=== PATIENT | male | born 1990 | race Caucasian/White ===

== ENCOUNTER 2024-12-09 11:03 | Outpatient (AMB) | payer OTHER, SELFPAY ==
--- OUTSIDE RECORDS SUMMARY | 2024-12-09 11:06 | XMS_ITS ---
Author Name [facility] Organization Unknown Problems Problem Status Onset Date Problem Type Date of Resoluti on Source Laceration of right index finger without foreign body without damage to nail, initial encounter active EncounterDiagnosisAct [id number] H Encounters Encounter Type Encounter Reason Primary Diagnosis Location Date Emergency Suture / Staple Removal Suture / Staple Removal [facility] 12/01/2024 Emergency Laceration without foreign body of right index finger without damage to nail, initial encounter Laceration without foreign body of right index finger without damage to nail, initial encounter [facility] 11/22/2024 Emergency Anxiety disorder, unspecified Anxiety disorder, unspecified [facility] 11/22/2024 Care Team Organization Name Specialty Phone Email Start Date End Da te [facility] 11/23/2024 [facility] 11/23/2024 [facility] NO PCP Primary Care 11/22/2024 [facility] 11/22/2024
--- OUTSIDE RECORDS SUMMARY | 2024-12-09 11:06 | XMS_ITS | Clinical Summary ---
Author Organization [address] [address] Care Team Providers Care Condominium Manager Name Role Phone System, Provider Not In Primary Care Provider Un available Allergies No known active allergies Encounters Date Type Department Care Team Description 12/01/2024 1:03 PM EDT - 12/01/2024 1:20 PM EDT Emergency [facility] Emergency Department [address] [address] Discharge Disposition: Home or Self Care 11/22/2024 10:02 PM EDT - 11/23/2024 12:50 AM EDT Emergency [facility] Emergency Department [address] [address] Meeta Lara PA Laceration of right index finger without foreign body without damage to nail, initial encounter (Primary Dx) Discharge Disposition: Home or Self Care 11/22/2024 Travel from Last 3 Months Social History Tobacco Use Types Packs/Day Years Used Date Smoking Tobacco: Never Assessed Sex and Gender Information Value Date Recorded Sex Assigned at Not on file Legal Sex Male 9:50 PM EDT Gender Identity Not on file Sexual Orientation Not on file Travel History Travel Start Travel End [place] 11/21/2024 11/21/2024 Last Filed Vital Signs Vital Sign Reading Time Taken Comments Blood Pressure 138/84 11/22/2024 10:04 PM EDT Pulse 80 11/22/2024 10:04 PM EDT Temperature 37.3 C (99.2 F) 11/22/2024 10:04 PM EDT Respiratory Rate 18 11/22/2024 10:04 PM EDT Oxygen Saturation 99% 11/22/2024 10:04 PM EDT Inhaled Oxygen Concentration - - Weight 76.2 kg (168 lb) 11/22/2024 10:04 PM EDT Height 175.3 cm (5' 9 ) 11/22/2024 10:04 PM EDT Body Mass Index 24.81 11/22/2024 10:04 PM EDT Plan of Treatment Health Maintenance Due Date Last Done Comments Hepatitis C Screening 1989 Lipid Panel 1989 Annual Physical Exam 2007 Pneumococcal Vaccine: Peds ( 0 to 5 Yrs) and At-Risk Pts (6 to 49 Yrs) (1 of 2 - PCV) 2008 Tdap and Td Vaccines Adult 2008 COVID-19 Vaccine (2023-2 5 season) 2024 Influenza Vaccine (#1) 2025 HIB Vaccines Aged Out No longer eligi ble based on patient's age to complete this topic HPV Vaccines (No Doses Required) Completed Hepatitis A Vaccines Aged Out No long er eligible based on patient's age to complete this topic IPV Vaccines Aged Out No longer eligi ble based on patient's age to complete this topic Meningococcal Vaccine Aged Out No beau lefty eligible based on patient's age to complete this topic RSV <20 Months Aged Out No longer javier gible based on patient's age to complete this topic Procedures Procedure Name Priority Date/Time Associated Diagnosis Comments HC REP SCALP,TRUNK,EXTREM 2.6 TO 7.5 CM Routine 11/22/2024 11:29 PM EDT MI SMPL REPAIR SCALP/NECK/AX/GENIT /TRUNK 2.6-7.5CM Routine 11/22/2024 11:29 PM EDT from Last 3 Months Results * MI SMPL REPAIR SCALP/NECK/AX/GENIT/TRUNK 2.6-7.5CM, HC REP SCALP,TRUNK,EXTREM 2.6 TO 7.5 CM (11/22/2024 11:29 PM EDT) Meeta Wallis PA - 11/22/2024 11:29 PM EDT OFELIA Ham 11/22/2024 11:33 PM ED Laceration Repair Performed by: OFELIA Ham Authorized by: OFELIA Ham Consent: Consent obtained: Verbal Consent given by: Patient Risks, benefits, and alternatives were discussed: yes Risks discussed: Infection, pain, retained foreign body, need for additional repair, nerve damage, poor cosmetic result, poor wound healing, vascular damage and tendon damage Alternatives discussed: No treatment Haughton protocol: Procedure explained and questions answered to patient or proxy's satisfaction: yes Patient identity confirmed: Verbally with patient and arm band Anesthesia: Anesthesia method: Local infiltration Local anesthetic: Lidocaine 1% w/o epi Laceration details: Location: Finger Finger location: R index finger Length (cm): 3 Depth (mm): 5 Pre-procedure details: Preparation: Patient was prepped and draped in usual sterile fashion Exploration: Limited defect created (wound extended): no Hemostasis achieved with: Direct pressure Wound exploration: wound explored through full range of motion and entire depth of wound visualized Wound extent: areolar tissue violated Contaminated: no Treatment: Area cleansed with: Povidone-iodine Amount of cleaning: Standard Irrigation solution: Sterile saline Irrigation volume: 50 Irrigation method: Pressure wash Visualized foreign bodies/material removed: no Debridement: None Undermining: None Scar revision: no Skin repair: Repair method: Sutures Suture size: 5-0 Suture material: Prolene Suture technique: Simple interrupted Number of sutures: 5 Approximation: Approximation: Close Repair type: Repair type: Simple Post-procedure details: Dressing: Non-adherent dressing Procedure completion: Tolerated well, no immediate complications Meeta GILBERT IN [facility]/BEDSIDE ORDERABL ES Final Result from Last 3 Months Insurance [employer] Care Teams Condominium Manager Relationship Specialty Start Date End Date System, Provider Not In PCP - General 11/22/24
--- OUTSIDE RECORDS SUMMARY | 2024-12-09 11:06 | XMS_ITS | Clinical Summary ---
Author Organization [facility] Address [address] [place] [address] Care Team Providers Care Embroidery Designer Name Role Phone Torie Ralph [facility] Primary Care Provider [phone] Source Comments PLEASE NOTE, if this patient is a minor, it may be UNLAWFUL to discuss sensitive information that is contained in these records (such as FAMILY PLANNING, MENTAL HEALTH or SUBSTANCE ABUSE) with the minor patient's parent or other person without the patient's specific authorization.[facility] Allergies No known active allergies Medications ibuprofen (ADVIL,MOTRIN) 800 mg tabletIndicatio ns:Chronic pain in right foot Take 1 Tab by mouth 3 (three) times daily as needed for pain (R foot pain) 90 Tab 1 7 Active PROAIR HFA 90 mcg/actuation inhaler INHALE 2 PUFFS BY MOUTH EVERY 4 HOURS NEEDED FOR WHEEZE OR SHORTNESS OF BREATH 8.5 Inhaler 9 Active Active Problems Problem Noted Date Diagnosed Date Mild intermittent asthma without complication (H HS-HCC) 03/23/2017 Family History Medical History Relation Name Comments No Known Problems Brother No Known Problems Father Cancer Maternal Grandfather Cancer Maternal Grandmother No Known Problems Mother Cancer Sister Relation Name Status Comments Brother Alive Father Alive Maternal Grandfather Maternal Grandmother Mother Alive Paternal Grandfather Paternal Grandmother Sister Alive Social History Tobacco Use Types Packs/Day Years Used Date Smoking Tobacco: Never Smokeless Tobacco: Never Tobacco Cessation:Counseling Given: No Alcohol Use Standard Drinks/Week Comments Yes 0 (1 standard drink = 0.6 oz pur e alcohol) socially Social Connections Answer Date Recorded Social Connections and Isolation 0 12/26/2018 Financial Resource Strain Answer Date R ecorded Financial Resource Strain 0 2018 Stress Answer Date Recorded Stress 0 12/26/2018 Physical Activity Answer Date Recorded Physical Activity 0 12/26/2018 Food Insecurity Answer Date Recorded Food 0 12/26/2018 Transportation Needs Answer Date Record ed Transportation 0 12/26/2018 Housing Stability Answer Date Recorded Housing 0 12/26/2018 Safety and Environment Answer Date Addison rded Safety 0 12/26/2018 Utilities Answer Date Recorded Utilities 0 12/26/2018 Employment Answer Date Recorded Employment 0 12/26/2018 Sex and Gender Information Value Date Recorded Sex Assigned at Male 03/23/2017 11:36 AM PST Legal Sex Male 11:13 AM PDT Gender Identity Male 03/23/2017 8:11 AM PST Sexual Orientation Straight 03/23/2017 8: 11 AM PST 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 Not on file Not on file Last Filed Vital Signs Vital Sign Reading Time Taken Comments Blood Pressure 112/72 08/05/2017 8:54 AM EDT Pulse 82 08/05/2017 8:54 AM EDT Temperature 36.2 C (97.1 F) 08/05/2017 8:54 AM EDT Respiratory Rate 18 08/05/2017 8:54 AM EDT Oxygen Saturation - - Inhaled Oxygen Concentration - - Weight 70.8 kg (156 lb) 08/05/2017 8:54 AM EDT Height 176 cm (5' 9.29 ) 03/23/2017 11:12 AM EST Body Mass Index 22.84 03/23/2017 11:12 AM EST Plan of Treatment Not on file Insurance [employer] Care Teams Embroidery Designer Relationship Specialty Start Date End Date Torie Ralph FNP [address] [place] [phone] PCP - General Family Medicine, GILL BOX OPERATOR 01/15/17
--- OUTSIDE RECORDS SUMMARY | 2024-12-09 11:06 | XMS_ITS | Clinical Summary ---
Author Organization [facility] Address [address] [place] [id number] Care Team Providers Care Char Puller Name Role Phone Pcp, Colleen RICE Primary Care Provider Unavailabl e Allergies No known active allergies Medications hydrOXYzine (ATARAX) 25 mg tablet Take 1 tablet (25 mg total) by mouth 3 (three) times a day as needed for anxiety. 21 tablet 5 Active hydrOXYzine (ATARAX) 25 mg tablet Take 1 tablet (25 mg total) by mouth 3 (three) times a day as needed for anxiety. 21 tablet 5 11/23/19 25 Discontinued hydrOXYzine (ATARAX) 25 mg tablet Take 1 tablet (25 mg total) by mouth 3 (three) times a day as needed for anxiety. 21 tablet 5 11/23/19 25 Discontinued Encounters Date Type Department Care Team Description 11/22/2024 3:41 AM EDT - 11/22/2024 5:14 AM EDT Emergency [facility] Department of Emergency Services [address] [place], [place] [id number] Fidel Rousseau MD Anxiety (Primary Dx) Discharge Disposition: Home or Self Care from Last 3 Months Social History Tobacco Use Types Packs/Day Years Used Date Smoking Tobacco: Never Smokeless Tobacco: Never Tobacco Cessation:Counseling Given: Not Answered Alcohol Use Standard Drinks/Week Comments Not Currently 0 (1 standard drink = 0.6 oz pur e alcohol) Sex and Gender Information Value Date Recorded Sex Assigned at Not on file Legal Sex Male 3:41 AM EDT Gender Identity Not on file Sexual Orientation Not on file COVID-19 Exposure Response Date Recorded In the last 10 days, have iron u been in contact with someone who was confirmed or suspected to have Coronavirus/COVID-19? No / Unsure 11/22/2024 3:42 AM EDT Last Filed Vital Signs Vital Sign Reading Time Taken Comments Blood Pressure 136/91 11/22/2024 5:13 AM EDT Pulse 78 11/22/2024 5:13 AM EDT Temperature 36.1 C (97 F) 11/22/2024 5:13 AM EDT Respiratory Rate 18 11/22/2024 5:13 AM EDT Oxygen Saturation 98% 11/22/2024 5:13 AM EDT Inhaled Oxygen Concentration - - Weight 76.2 kg (168 lb) 11/22/2024 3:47 AM EDT Height 162.6 cm (5' 4 ) 11/22/2024 3:47 AM EDT Body Mass Index 28.84 11/22/2024 3:47 AM EDT Plan of Treatment Not on file Insurance [employer] Care Teams Char Puller Relationship Specialty Start Date End Date PcpColleen MD [address] [place] [address] PCP - General Internal Medicine 11/22/24
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
[2024-12-09 11:27] VITALS: BP 110/72; PULSE 76; RESP 14; TEMP 36.6; O2SAT 99; BMI 26.0
== END 2024-12-09 12:10 | disposition home or self-care (01) ==
LOC: HO.HMCFM 11:03
PROVIDERS: PCP Nurse Practitioner Family; Visit Provider Nurse Practitioner Family
DX: Z00.00 Encounter for general adult medical examination without abnormal findings (principal); F43.10 Post-traumatic stress disorder, unspecified; G47.9 Sleep disorder, unspecified; K08.9 Disorder of teeth and supporting structures, unspecified; F41.9 Anxiety disorder, unspecified; F32.A Depression, unspecified; Z78.9 Other specified health status

== ENCOUNTER → 2024-12-09 11:03 | Outpatient (BNVA) | payer OTHER, SELFPAY | PROVIDERS: PCP Nurse Practitioner Family; Visit Provider Nurse Practitioner Family | DX: Z00.00 Encounter for general adult medical examination without abnormal findings (principal); K08.9 Disorder of teeth and supporting structures, unspecified; F41.9 Anxiety disorder, unspecified; F32.A Depression, unspecified; F43.10 Post-traumatic stress disorder, unspecified; G47.9 Sleep disorder, unspecified; Z78.9 Other specified health status; Z79.899 Other long term (current) drug therapy | CPT/HCPCS: 96127; 96160; 99202; 99385 ==

== ENCOUNTER 2025-01-16 11:09 | Outpatient (REF) | payer OTHER, SELFPAY ==
[2025-01-16 11:24] LABS: MANUAL DIFF FLAG NO
[2025-01-16 11:46] LABS: Hematocrit 37.5 % (42.0-52.0); Hemoglobin 12.7 g/dl (14.0-18.0); Imm Gran Abs Auto 0.01 X10*3/uL (0.00-0.03); Imm Gran Pct Auto 0.2 % (0.0-0.4); Lymphocytes Absolute Auto 1.4 X10*3/uL (1.2-4.9); Mean Corpuscular HGB Conc 33.9 g/dl (31.0-36.0); Mean Corpuscular Hemoglobin 29.4 pg (27.0-33.0); Mean Corpuscular Volume 86.8 fL (80.0-98.0); NRBC Abs Auto 0.000 X10*3/uL (0.0-0.012); NRBC Pct Auto 0.0 /100WBC (0.0-0.2); Platelet Count 356 X10*3/uL (160-400); Red Blood Count 4.32 X10*6/uL (4.60-5.80); White Blood Count 5.8 X10*3/uL (4.8-10.8)
[2025-01-16 12:13] LABS: Appearance Urine Clear; Glucose Urine UA Negative (Negative); PH 7.5 (5.0-9.0); Specific Gravity - Urine <= 1.005 (1.005-1.025)
[2025-01-16 12:28] LABS: Alanine Aminotransferase 20 U/L (0-40); Albumin Level 4.8 g/dL (3.5-5.0); Alkaline Phosphatase 55 U/L (39-117); Anion Gap 11 (12-20); Aspartate Amino Transferase 23 U/L (5-37); Blood Urea Nitrogen 10 mg/dL (9-16); Calcium 9.3 mg/dL (8.4-10.2); Carbon Dioxide 27 mmol/L (22-29); Chloride 107 mmol/L (96-108); Cholesterol 167 mg/dL (<200); Estimated Glomerular Filt Rate > 60; HDL Cholesterol 55 mg/dL (>40); Potassium 3.9 mmol/L (3.3-5.1); Sodium 141 mmol/L (135-145); Total Protein 7.5 g/dL (6.5-8.0); Triglycerides 94 mg/dL (<150)
--- OUTSIDE RECORDS SUMMARY | 2025-01-16 15:00 | XMS_ITS | Clinical Summary ---
Author Organization [address] [address] Care Team Providers Care Manager Client Name Role Phone System, Provider Not In Primary Care Provider Un available Allergies No known active allergies Encounters Date Type Department Care Team Description 12/01/2024 1:03 PM EDT - 12/01/2024 1:20 PM EDT Emergency [facility] Emergency Department [address] [address] Discharge Disposition: Home or Self Care 11/22/2024 10:02 PM EDT - 11/23/2024 12:50 AM EDT Emergency [facility] Emergency Department [address] [address] Meeta Lara PA Laceration of right index [...] on file Sexual Orientation Not on file Last Filed Vital Signs [...] and Td Vaccines Adult 2008 COVID-19 Vaccine ( - 2023-2 5 season) 2025 Influenza Vaccine (#1) 2025 HIB Vaccines Aged [...] TO 7.5 CM (11/22/2024 11:29 PM EDT) Narrative Meeta Lara PA - 11/22/2024 11:29 PM EDT OFELIA [...] and tendon damage Alternatives discussed: No treatment [place] protocol: Procedure explained and questions answered to [...] 3 Months Insurance [employer] Care Teams Manager Client Relationship Specialty Start Date End Date System, Provider Not In PCP - General 11/22/24
--- OUTSIDE RECORDS SUMMARY | 2025-01-16 15:00 | XMS_ITS | Clinical Summary ---
Author Organization [facility] Address [address] [place] [address] Care Team Providers Care Plastic Fixture Builder Name Role Phone Torie Ralph [facility] Primary Care Provider [phone] Source Comments PLEASE NOTE, if this patient [...] on file Insurance [employer] Care Teams Plastic Fixture Builder Relationship Specialty Start Date End Date Torie Ralph FNP [address] [place] [phone] PCP - General Family Medicine, CREDIT OFFICER 01/15/17
--- OUTSIDE RECORDS SUMMARY | 2025-01-16 15:00 | XMS_ITS | Clinical Summary ---
Author Organization [facility] Address [address] [place] [address] Care Team Providers Care Rubber Mixer Name Role Phone Pcp, Colleen RICE Primary Care Provider Unavailabl e Allergies No known active allergies Medications hydrOXYzine (ATARAX) 25 mg tablet Take 1 tablet (25 mg total) by mouth 3 (three) times a day as needed for anxiety. 21 tablet 11/22/2024 Active Encounters Date Type Department Care Team Description 11/22/2024 3:41 AM EDT - 11/22/2024 5:14 AM EDT Emergency [facility] Department of Emergency Services [address] [place] [address] Fidel Rousseau MD Anxiety (Primary Dx) Discharge [...] on file Insurance [employer] Care Teams Rubber Mixer Relationship Specialty Start Date End Date Colleen Weston MD [address] [place] [address] PCP - General Internal Medicine 11/22/24
[2025-01-19 23:39] LABS: PSA, Ultra Sensitive 0.20 ng/mL
== END 2025-01-16 11:10 | disposition home or self-care (01) ==
LOC: HO.LAB 11:09
PROVIDERS: PCP Nurse Practitioner Family; Visit Provider Nurse Practitioner Family
DX: Z00.00 Encounter for general adult medical examination without abnormal findings (principal); Z12.5 Encounter for screening for malignant neoplasm of prostate
CPT/HCPCS: 36415; 80053; 80061; 81003; 82043; 82306; 82570; 84153; 84443; 85025

== ENCOUNTER → 2025-01-25 10:30 | Outpatient (BNV) | payer OTHER, SELFPAY | PROVIDERS: Visit Provider Psychiatry & Neurology Psychiatry | DX: F33.9 Major depressive disorder, recurrent, unspecified (principal); F43.10 Post-traumatic stress disorder, unspecified; F41.3 Other mixed anxiety disorders; F64.9 Gender identity disorder, unspecified | CPT/HCPCS: 90792 ==

== ENCOUNTER 2025-01-30 15:31 | Outpatient (AMB) | payer OTHER, SELFPAY ==
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
--- OUTSIDE RECORDS SUMMARY | 2025-01-30 17:33 | XMS_ITS | Clinical Summary ---
Author Organization [facility] Address [address] [place] [address] Care Team Providers Care Director Of Radiology Name Role Phone Pcp, Colleen RICE Primary Care Provider Unavailabl e Allergies No known active allergies Medications hydrOXYzine (ATARAX) 25 mg tablet Take 1 tablet (25 mg total) by mouth 3 (three) times a day as needed for anxiety. 21 tablet 11/22/2024 Active Encounters Date Type Department Care Team Description 11/22/2024 3:41 AM EDT - 11/22/2024 5:14 AM EDT Emergency [facility] Department of Emergency Services [address] [place] [address] Fidel Rousseau MD Anxiety (Primary Dx) Discharge [...] on file Insurance [employer] Care Teams Director Of Radiology Relationship Specialty Start Date End Date Colleen Weston MD [address] [place] [address] PCP - General Internal Medicine 11/22/24
--- OUTSIDE RECORDS SUMMARY | 2025-01-30 17:33 | XMS_ITS | Clinical Summary ---
Author Organization [facility] Address [address] [place] [address] Care Team Providers Care Roll Form Operator Name Role Phone Torie Ralph [facility] Primary Care Provider [phone] Source Comments PLEASE NOTE, if this patient [...] Diagnosed Date Mild intermittent asthma without complication Family History Medical History Relation Name Comments [...] on file Insurance [employer] Care Teams Roll Form Operator Relationship Specialty Start Date End Date Torie Ralph FNP [address] [place] [phone] PCP - General Family Medicine, SENIOR HEALTH EDUCATOR 01/15/17
--- OUTSIDE RECORDS SUMMARY | 2025-01-30 17:33 | XMS_ITS | Clinical Summary ---
Author Organization [address] [address] Care Team Providers Care Stone Cutter Name Role Phone System, Provider Not In Primary Care Provider Un available Allergies No known active allergies Encounters Date Type Department Care Team Description 12/01/2024 1:03 PM EDT - 12/01/2024 1:20 PM EDT Emergency [facility] Emergency Department [address] [address] Discharge Disposition: Home or Self Care 11/22/2024 10:02 PM EDT - 11/23/2024 12:50 AM EDT Emergency [facility] Emergency Department [address] [address] Meeta Lara PA Laceration of right index [...] 7.5 CM Routine 11/22/2024 11:29 PM EDT PA SMPL REPAIR SCALP/NECK/AX/GENIT /TRUNK 2.6-7.5CM Routine 11/22/2024 11:29 PM EDT from Last 3 Months Results * PA SMPL REPAIR SCALP/NECK/AX/GENIT/TRUNK 2.6-7.5CM, HC REP SCALP,TRUNK,EXTREM [...] and tendon damage Alternatives discussed: No treatment [place] protocol: Procedure explained and questions answered to [...] Final Result from Last 3 Months Insurance MEDICAID OUT-STATE Care Teams Stone Cutter Relationship Specialty Start Date End Date System, Provider Not In PCP - General 11/22/24
== END 2025-01-30 15:58 | disposition home or self-care (01) ==
LOC: HO.HMCFM 15:31
PROVIDERS: PCP Nurse Practitioner Family; Visit Provider Nurse Practitioner Family
DX: E55.9 Vitamin D deficiency, unspecified (principal); D64.9 Anemia, unspecified

== ENCOUNTER 2025-02-02 08:30 | Outpatient (RCR) | payer OTHER, SELFPAY ==
[2025-01-20 09:29] VITALS: BP 120/70; PULSE 80; TEMP 36.9; BMI 26.4
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
--- NOTE | 2025-01-26 15:21 | HO.PHP ---
Client's case was opened and reviewed in teams.
--- NOTE | 2025-01-27 11:55 | P.PNPSP_ITS ---
Subjective Subjective Date of Service: 01/27/25 Reason For Visit: MDD Healthcare Proxy: No Guardianship: No Medical Problems Affecting Mental Status: No Interim History: 34 presents for fu in [facility] - started aripiprazole at night for sleep - missed it one night and didn't sleep well but don't sleep regardless Depression is kicking their ass- no si - been struggling with si =- no attempt since november - Thursday was last si - sib - 131 days with no cutting not eating not taking care of self - social drinking only Medication Compliance: Yes Side effects from medications: Yes (diarrhea 1-2 wks - ) Attending Groups: Yes Review of Systems Acute medical concerns: No transition medical Medical Review of Systems: changed Review of Systems: no clear s/e some diarrhea - 1-2 wks Mental Status Exam Mental Status Exam Narrative: transidfemale Patient Appearance: Bizarre (oddly dressed but consistent with personality style- ) Patient Orientation: Person, Place, Time and Situation Level of Consciousness: Awake Patient Behavior: Appropriate and Cooperative Mood Description: Anxious and Apprehensive Affect Description: Appropriate Patient Cognition Impaired: No Ability to Follow Directions: Good Speech Pattern: Clear Hallucinations: None Delusions: Not Present Perceptual Disturbances: Derealization Thought Process: Intact and Goal Oriented Thought Content: positive for Intact Depressive Symptoms: Insomnia, Difficulty Sleeping, Feelings of Worthlessness and Hopelessness Judgement: Fair Diagnostics Vital Signs (24Hr): BMI result Body Mass Index 26.4 Assessment & Plan Assessment & Plan (1) PTSD (post-traumatic stress disorder): Status: Acute Code(s): F43.10 - Post-traumatic stress disorder, unspecified (2) MDD (major depressive disorder), recurrent episode: Status: Acute Code(s): F33.9 - Major depressive disorder, recurrent, unspecified Plan double ablify to 4mg at night tolerating 2mg at night since Thursday no untoward effect Patient educated on: medication risk/benefits and therapeutic strategies Informed Consent: understands Reason for contiued partial hosp. stay Substantial Risk for: harm to self and rapid decompensation Certification I certify that partial hospital treatment is medically necessary due to the symptoms and problems resulting from the patient's mental illness and the failure to treat the patient at the partial hospital level of care would likely result in the patient requiring inpatient psychiatric care which could not be prevented at a less intensive level of care. Total time managing care of this patient today ____ minutes. Discharge Plan Discharge Attending provider: Jackelyn Myers Medications: New aripiprazole 2 mg tablet 4 mg PO BEDTIME 7 Days Qty: 14 0RF Continued prazosin 1 mg capsule 2 mg PO BEDTIME estradiol [Vivelle-Dot] 0.1 mg/24 hr patch semiweekly 2 patch transdermal 2XW Rx Instructions: apply 2 patch for 3 days alternating with 2 patch for 4 days each week for 3 wks per 4-wk cycle. Patient is increasing to 3 patches. Waiting for prescription to go through. hydroxyzine HCl 25 mg tablet 25 mg PO BEDTIME PRN (Reason: Insomnia, anxiety) spironolactone 50 mg tablet 50 mg PO BID escitalopram oxalate 10 mg tablet 10 mg PO DAILY albuterol sulfate [Ventolin HFA] 90 mcg/actuation HFA aerosol inhaler 2 puff inhalation Q6H PRN (Reason: SOB) Rx Instructions: Pharmacy does not have record of prescription. Print Language: Qatari
--- NOTE | 2025-02-02 21:32 | HO.PHPPROGNO ---
Subjective Subjective Date of Service: 02/02/25 Reason For Visit: MDD Interim History: Patient seen for follow-up, anticipating discharge at the end of program today.? Good, I learned a lot . Transient passive SI, has abated. Some fleeting thoughts yesterday, none today. Talked about music she loves by [place], and some particular songs that are meaning ful to her. Reports no acute issues or concerns. Medication compliant, medications well-tolerated. Denies any adverse effects.? Mood is stable.? Denies any hopelessness or SI. Denies thoughts of harming self or others at this time. Denies any aggressive ideation or HI. Denies any paranoia or AH or VH. Sleep, appetite, energy stable. Medication Compliance: Yes Side effects from medications: No Attending Groups: Yes Review of Systems Acute medical concerns: No Mental Status Exam Mental Status Exam Narrative: Alert, oriented, in no acute distress. Calm, cooperative. Mood stable, affect appropriate. Speech normal. Thought process linear, coherent, more goal-directed. Thought content related to stressors, future-oriented, denies any helplessness, hopelessness or SI.? No aggressive ideation or HI. No paranoia or delusional content elicited. No evidence of psychosis. Insight and judgment fair-good. Diagnostics Vital Signs (24Hr): BMI result Body Mass Index 26.4 Assessment & Plan Assessment & Plan (1) PTSD (post-traumatic stress disorder): Status: Acute Code(s): F43.10 - Post-traumatic stress disorder, unspecified (2) MDD (major depressive disorder), recurrent episode: Status: Acute Code(s): F33.9 - Major depressive disorder, recurrent, unspecified (3) Other mixed anxiety disorders: Status: Acute Code(s): F41.3 - Other mixed anxiety disorders Plan Discharge from [facility] Continue regular medications? Refills sent to pharmacy Will defer further medication management to outpatient provider *Safety plan reviewed *Discharge diagnoses, treatment course, discharge plan have been reviewed with patient (including medication regime, medication management, potential side effects) as well as treatment rationale were also revisited *Discharge paperwork signed and given to patient, copy sent for scanning to chart Patient educated on: diagnosis and medication risk/benefits Informed Consent: understands Reason for contiued partial hosp. stay Substantial Risk for: stable for discharge Certification I certify that partial hospital treatment is medically necessary due to the symptoms and problems resulting from the patient's mental illness and the failure to treat the patient at the partial hospital level of care would likely result in the patient requiring inpatient psychiatric care which could not be prevented at a less intensive level of care. Total time managing care of this patient today __30__ minutes. Discharge Plan Discharge Attending provider: Jackelyn Myers Medications: Continued aripiprazole 2 mg tablet 4 mg PO BEDTIME 15 Days Qty: 30 0RF estradiol 2 mg tablet 2 mg PO DAILY Rx Instructions: 1 1/2 tab 2 times a day cholecalciferol (vitamin D3) 25 mcg (1,000 unit) tablet 25 mcg PO DAILY 90 Days Qty: 90 3RF prazosin 1 mg capsule 2 mg PO BEDTIME estradiol [Vivelle-Dot] 0.1 mg/24 hr patch semiweekly 2 patch transdermal 2XW Rx Instructions: apply 2 patch for 3 days alternating with 2 patch for 4 days each week for 3 wks per 4-wk cycle. Patient is increasing to 3 patches. Waiting for prescription to go through. hydroxyzine HCl 25 mg tablet 25 mg PO BEDTIME PRN (Reason: Insomnia, anxiety) spironolactone 50 mg tablet 50 mg PO BID escitalopram oxalate 10 mg tablet 10 mg PO DAILY albuterol sulfate [Ventolin HFA] 90 mcg/actuation HFA aerosol inhaler 2 puff inhalation Q6H PRN (Reason: SOB) Rx Instructions: Pharmacy does not have record of prescription. Patient Education: Mood Disorders (DC), Anxiety (ED), Anxiety (GEN) Print Language: Italian
== END 2025-02-02 23:59 | disposition home or self-care (01) ==
LOC: HO.PHPA 08:30
PROVIDERS: Visit Provider Psychiatry & Neurology Psychiatry
DX: F33.9 Major depressive disorder, recurrent, unspecified (principal); F43.10 Post-traumatic stress disorder, unspecified; F41.3 Other mixed anxiety disorders; F64.9 Gender identity disorder, unspecified
CPT/HCPCS: 90791; 90853

== ENCOUNTER 2025-03-14 10:57 | Outpatient (REF) | payer OTHER, SELFPAY ==
--- OUTSIDE RECORDS SUMMARY | 2025-03-14 00:10 | XMS_ITS | Encounter Summary ---
Author Organization [facility] Address [address] [place] [address] Care Team Providers Care Negotiator Sales Name Role Phone Ismael, Janiyalouis PRICE Primary Care Provider [phone] Reason for Referral * Rehabilitation (Elective) - Pending Review Specialty Diagnoses / Procedures Referred By Lorena samuels Referred To Contact Rehabilitation Diagnoses Chronic left shoulder pain Robert Crump PA-C [address] [place] [address] Phone: tel: fax: [facility] Phone: tel: Referral ID Status Reason Start Date Expiration Date Visits Requested Visits Authorized [id number] Pending Review Support Services 03/15/2026 99 99 Question Answer Is this referral for an initial evaluation or additional visits? Initial evaulation Is this related to a Neurological Condition? No Reason for Visit * Reason Comments Chest Pain Shoulder Pain Encounter Details Date Type Department Care Team (Late st Contact Info) Description 03/14/2025 12:10 AM EST - 03/14/2025 5:08 AM EST Emergency [facility] Emergency Department [address] [place] [phone] Alexis Nixon MD [address] [place] [phone] Chronic left shoulder pain (Primary Dx) Discharge Disposition: Home or Self Care Social History Tobacco Use Types Packs/Day Years Used Date Smoking Tobacco: Never Assessed Sex and Gender Information Value Date Recorded Sex Assigned at Male 03/14/2025 12:08 AM EST Legal Sex Male 11:53 PM EST Gender Identity Male 03/14/2025 12:08 AM EST Sexual Orientation Heterosexual (straight) 03/14 12:08 AM EST documented as of this encounter Last Filed Vital Signs Vital Sign Reading Time Taken Comments Blood Pressure 119/61 03/14/2025 2:39 AM EST Pulse 71 03/14/2025 2:39 AM EST Temperature 36.7 C (98 F) 03/14/2025 2:39 AM EST Respiratory Rate 17 03/14/2025 2:39 AM EST Oxygen Saturation 98% 03/14/2025 2:39 AM EST Inhaled Oxygen Concentration - - Weight - - Height - - Body Mass Index - - documented in this encounter Discharge Instructions * Discharge Instructions* Robert Crump PA-C - 03/14/2025 5:02 AM EST You were seen for left shoulder pain. Please take the Motrin and use the prescribed Robaxin (methocarbamol) muscle relaxant medication asneeded, do note that this medication can make you sleepy therefore do not take while driving, drinking alcohol or operating heavy machinery. Follow-up with orthopedics. Follow-up with your primary doctor. Return for any concerning symptoms. documented in this encounter Medications at Time of Discharge ibuprofen (MOTRIN) 600 MG tablet Take 1 tablet (600 mg total) by mouth 3 (three) times a day as needed for mild pain (pain). 20 tablet 03/14/2025 methocarbamol (ROBAXIN) 750 MG tablet Take 1 tablet (750 mg total) by mouth 4 times daily (every 6 hours) as needed for muscle spasms. 20 tablet 03/14/2025 documented as of this encounter Plan of Treatment Pending Results Name Type Priority Associated Diagnoses Date /Time 10 Min ECG 12 lead ECG ED Critical 03/13 11:58 PM EST Scheduled Referrals Name Type Priority Associated Diagnoses Orde r Schedule Amb Referral to Therapy Services (PT or OT) Outpatient Referral Routine Chronic left shoulder pain Ordered: 03/14/2025 documented as of this encounter Procedures Procedure Name Priority Date/Time Associated Diagnosis Comments XR SHOULDER 2+ VIEWS-LEFT STAT 03/14/2025 4:20 AM EST XR CHEST 2 VIEWS STAT 03/14/2025 4:20 AM EST ECG 12-LEAD ED Critical 03/13/2025 11:58 PM EST Procedure Note - 03/13/2025 11:58 PM ESTThis note is in progress. Normal sinus rhythm Incomplete right bundle branch block Borderline ECG No previous ECGs available documented in this encounter Results * XR Shoulder 2+ views-Left (03/14/2025 4:20 AM EST) Anatomical Region Laterality Modality Shoulder Left Computed Radiogr aphy 03/14/2025 4:04 AM EST Impressions 03/14/2025 9:45 AM EST Normal plain film examination of the left shoulder. Interpreted by: Sha Butts MD Rackman I personally reviewed the images and the resident's preliminary report and AGREE with the report as it is now presented (RADPAL1). Narrative 03/14/2025 9:45 AM EST EXAMINATION: XR SHOULDER, LEFT CLINICAL INFORMATION: left shoulder pain COMPARISON: None available. TECHNIQUE: Four views of the left shoulder. FINDINGS: No fracture or dislocation is seen. No lytic or sclerotic bony lesion is identified. No periosteal reaction is noted. Joint spaces and alignment appear maintained. Soft tissues appear unremarkable. Procedure Note Bryan Granados MD - 03/14/2025 EXAMINATION: XR SHOULDER, LEFT CLINICAL INFORMATION: left shoulder pain COMPARISON: None available. TECHNIQUE: Four views of the left shoulder. FINDINGS: No fracture or dislocation is seen. No lytic or sclerotic bony lesion is identified. No periosteal reaction is noted. Joint spaces and alignment appear maintained. Soft tissues appear unremarkable. IMPRESSION: Normal plain film examination of the left shoulder. Interpreted by: Sha Butts MD Rackman I personally reviewed the images and the resident's preliminary report and AGREE with the report as it is now presented (RADPAL1). Robert GILBERT-C IMG DIAGNOSTIC IMAGING O RDERABLES Final Result * XR Chest 2 views (03/14/2025 4:20 AM EST) Anatomical Region Laterality Modality Chest Computed Radiogr aphy 03/14/2025 4:04 AM EST Impressions 03/14/2025 9:49 AM EST Normal chest PA and lateral. Interpreted by: Sha Butts MD Rackman I personally reviewed the images and the resident's preliminary report and AGREE with the report as it is now presented (RADPAL1). Narrative 03/14/2025 9:49 AM EST EXAMINATION: XR CHEST CLINICAL INFORMATION: left upper chest wall pain COMPARISON: None TECHNIQUE: PA and lateral views of the chest FINDINGS: No infiltrate, effusion, pneumothorax, or adenopathy is seen. The cardiovascular structures, mediastinum, diaphragm, bones, and soft tissues appear unremarkable. Procedure Note Bryan Granados MD - 03/14/2025 EXAMINATION: XR CHEST CLINICAL INFORMATION: left upper chest wall pain COMPARISON: None TECHNIQUE: PA and lateral views of the chest FINDINGS: No infiltrate, effusion, pneumothorax, or adenopathy is seen. The cardiovascular structures, mediastinum, diaphragm, bones, and soft tissues appear unremarkable. IMPRESSION: Normal chest PA and lateral. Interpreted by: Sha Butts MD Rackman I personally reviewed the images and the resident's preliminary report and AGREE with the report as it is now presented (RADPAL1). Robert GILBERT-C [facility] O RDERABLES Final Result documented in this encounter Visit Diagnoses Diagnosis Chronic left shoulder pain- Primary Pain in joint, shoulder region documented in this encounter Administered Medications Inactive Administered Medications - up to 1 most recent administrations Medication Order MAR Action Action Date Dose Rate Site acetaminophen (TYLENOL) tablet 975 mg 975 mg, Oral, Once, On Thu03/14/25 at 0343, For 1 dose Given 03/14/2025 3:51 AM EST 975 mg ibuprofen (MOTRIN) tablet 600 mg 600 mg, Oral, Once, On Thu03/14/25 at 0343, For 1 dose, Administer with food. Given 03/14/2025 3:51 AM EST 600 mg methocarbamol (ROBAXIN) tablet 750 mg 750 mg, Oral, Once, On Thu03/14/25 at 0455, For 1 dose Given 03/14/2025 4:58 AM EST 750 mg documented in this encounter Active and Recently Administered Medications Times are shown in EST. Scheduled Medication Order 03/12/2025 03/13/2025 03/14/2025 acetaminophen (TYLENOL) tablet 975 mg (COMPLETED) 975 mg, Oral, Once, On Thu03/14/25 at 0343, For 1 dose 0351 (Given - Provid er: Gail Qiu RN) ibuprofen (MOTRIN) tablet 600 mg (COMPLETED) 600 mg, Oral, Once, On Thu03/14/25 at 0343, For 1 dose, Administer with food. 0351 (Given - Provid er: Gail Qiu RN) methocarbamol (ROBAXIN) tablet 750 mg (COMPLETED) 750 mg, Oral, Once, On Thu03/14/25 at 0455, For 1 dose 0458 (Given - Provid er: Janet Ceron RN) documented in this encounter Care Teams Negotiator Sales Relationship Specialty Start Date End Date Mariluz Guevara NP [address] [place] [address] PCP - General 03/14/25 documented as of this encounter
--- OUTSIDE RECORDS SUMMARY | 2025-03-14 13:07 | XMS_ITS | Clinical Summary ---
Author Organization [facility] Address [address] [place] [address] Care Team Providers Care Backfiller Name Role Phone Mariluz Guevara PRICE Primary Care Provider [phone] Allergies No known active allergies Medications ibuprofen (MOTRIN) 600 MG tablet Take 1 tablet (600 mg total) by mouth 3 (three) times a day as needed for mild pain (pain). 20 tablet 03/14/2025 Active methocarbamol (ROBAXIN) 750 MG tablet Take 1 tablet (750 mg total) by mouth 4 times daily (every 6 hours) as needed for muscle spasms. 20 tablet 03/14/2025 Active Encounters Date Type Department Care Team Description 03/14/2025 12:10 AM EST - 03/14/2025 5:08 AM EST Emergency [facility] Emergency Department [address] [place] [address] Alexis Nixon MD Chronic left shoulder pain (Primary Dx) Discharge [...] Orientation Heterosexual (straight) 03/14 12:08 AM EST Last Filed Vital Signs Vital Sign Reading Time Taken Comments Blood Pressure 119/61 03/14/2025 2:39 AM EST Pulse 71 03/14/2025 2:39 AM EST Temperature 36.7 C (98 F) 03/14/2025 2:39 AM EST Respiratory Rate 17 03/14/2025 2:39 AM EST Oxygen Saturation 98% 03/14/2025 2:39 AM EST Inhaled Oxygen Concentration - - Weight - - Height - - Body Mass Index - - Plan of Treatment Health Maintenance Due Date Last Done Comments Hepatitis C Virus Screening 1989 HIV Screening 2002 DTaP/Tdap/Td Vaccines (1 - Tdap) 2008 Hepatitis B Vaccines (1 of 3 - 19+ 3-dose series) 2008 Influenza Vaccine 12/02/2024 COVID-19 Vaccine (1 - 2023-2 5 season) 2025 HPV Vaccines (No Doses Required) Completed Pneumococcal Vaccine: Pediat agapito (0-5 Years) and At-Risk Patients (6 to 49 Years) Aged Out No longer eligible b ased on patient's age to complete this topic [...] block Borderline ECG No previous ECGs available from Last 3 Months Results * XR Shoulder 2+ views-Left (03/14/2025 4:20 AM EST) Anatomical Region Laterality Modality Shoulder Left Computed Radiogr aphy 03/14/2025 4:04 AM EST Impressions 03/14/2025 9:45 AM EST Normal plain film examination of the left shoulder. Interpreted by: Sha Butts MD Production Designer I personally reviewed the images and the [...] left shoulder. Interpreted by: Sha Butts MD Production Designer I personally reviewed the images and the resident's preliminary report and AGREE with the report as it is now presented (RADPAL1). us Robert Crump PA-C [facility] O RDERABLES Final Result * XR Chest 2 views (03/14/2025 4:20 AM EST) Anatomical Region Laterality Modality Chest Computed Radiogr aphy 03/14/2025 4:04 AM EST Impressions 03/14/2025 9:49 AM EST Normal chest PA and lateral. Interpreted by: Sha Butts MD Production Designer I personally reviewed the images and the [...] and lateral. Interpreted by: Sha Butts MD Production Designer I personally reviewed the images and the resident's preliminary report and AGREE with the report as it is now presented (RADPAL1). us Robert Crump PA-C [facility] RDERABLES Final Result from Last 3 Months Insurance [employer] [facility] Care Teams Backfiller Relationship Specialty Start Date End Date Mariluz Guevara NP [address] [place] [address] PCP - General 03/14/25
--- OUTSIDE RECORDS SUMMARY | 2025-03-14 13:07 | XMS_ITS | Clinical Summary ---
Author Organization [facility] Address [address] [place] [address] Care Team Providers Care Marine Painter Name Role Phone System, Provider Not In Primary Care Provider Un available Allergies Active Allergy Reactions Criticality Noted Date Comments Nickel Rash Low 02/14/2025 Encounters Date Type Department Care Team Description 02/14/2025 11:29 PM EDT - 02/15/2025 12:43 AM EDT Emergency [facility] [place] [address] Felix Sterling PA Finger pain, left (Primary Dx) Discharge Disposition: Home or Self Care 02/14/2025 Travel from Last 3 Months Social History Tobacco Use Types Packs/Day Years Used Date Smoking Tobacco: Never Assessed Sex and Gender Information Value Date Recorded Sex Assigned at Male 02/14/2025 11:03 PM EDT Legal Sex Male 9:50 PM EDT Gender Identity Transgender Female 02/14/2025 11 :03 PM EDT Sexual Orientation Lesbian 02/14/2025 11 :03 PM EDT Travel History Travel Start Travel End [place] 01/15/2025 02/14/2025 Last Filed Vital Signs Vital Sign Reading Time Taken Comments Blood Pressure 137/80 02/14/2025 11:00 PM EDT Pulse 80 11/22/2024 10:04 PM EDT Temperature 36.7 C (98.1 F) 02/14/2025 11:00 PM EDT Respiratory Rate 16 02/14/2025 11:00 PM EDT Oxygen Saturation 99% 02/14/2025 11:00 PM EDT Inhaled Oxygen Concentration - - Weight 84 kg (185 lb 3 oz) 02/14/2025 11:00 PM E DT Height 175.3 cm (5' 9 ) 02/14/2025 11:00 PM EDT Body Mass Index 27.35 02/14/2025 11:00 PM EDT Plan of Treatment Health Maintenance Due Date Last Done Comments Hepatitis C Screening 1989 Lipid Panel 1989 Annual Physical Exam 2007 Pneumococcal Vaccine: Peds ( 0 to 5 Yrs) and At-Risk Pts (6 to 49 Yrs) (1 of 2 - PCV) 2008 Tdap and Td Vaccines Adult 2008 COVID-19 Vaccine (1 - 2024-2 6 season) 2025 Influenza Vaccine (#1) 2025 HIB [...] Procedure Name Priority Date/Time Associated Diagnosis Comments X-RAY FINGERS 2+ VIEWS LEFT STAT 02/15/2025 12:12 AM EDT from Last 3 Months Results * XR fingers 2+ views left (02/15/2025 12:12 AM EDT) Anatomical Region Laterality Modality Hand Left Computed Radiogr aphy Impressions 02/15/2025 12:36 AM EDT Impression: No radiographic evidence of foreign body. END OF REPORT Narrative 02/15/2025 12:36 AM EDT Radiographs of the left 2 digit (3 views). February 15, 2025 0006 hours Clinical history: Question foreign body , Hand pain. Comparison: No prior study is available for comparison. Findings: There is no evidence of fracture or dislocation. The visualized bones are of normal configuration and density. The visualized joints are maintained. The periarticular soft tissues are normal. Procedure Note Jorje Ingram MD - 02/15/2025 Radiographs of the left 2 digit (3 views). February 15, 2025 0006 hours Clinical history: Question foreign body , Hand pain. Comparison: No prior study is available for comparison. Findings: There is no evidence of fracture or dislocation. The visualized bones areof normal configuration and density. The visualized joints are maintained.The periarticular soft tissues are normal. IMPRESSION: Impression: No radiographic evidence of foreign body. END OF REPORT us Romana Jacobo MD IMG XR PROCEDURES Final Resul t from Last 3 Months Insurance MEDICAID OUT-STATE Care Teams Marine Painter Relationship Specialty Start Date End Date System, Provider Not In PCP - General 11/22/24
--- OUTSIDE RECORDS SUMMARY | 2025-03-14 13:07 | XMS_ITS | Clinical Summary ---
Author Organization [facility] Address [address] [place] [address] Care Team Providers Care Magento Web Developer Name Role Phone Torie Ralph [facility] Primary Care Provider [phone] Source Comments PLEASE NOTE, if this patient [...] on file Insurance [employer] Care Teams Magento Web Developer Relationship Specialty Start Date End Date Torie Ralph FNP [address] [place] [phone] PCP - General Family Medicine, HAIR TINTER 01/15/17
--- OUTSIDE RECORDS SUMMARY | 2025-03-14 13:07 | XMS_ITS | Clinical Summary ---
Author Organization [facility] Address [address] [place] [address] Care Team Providers Care Inspector Golf Ball Name Role Phone Pcp, No MD Primary Care Provider Unavailabl e Allergies No known active allergies Medications hydrOXYzine (ATARAX) 25 mg tablet Take 1 tablet (25 mg total) by mouth 3 (three) times a day as needed for anxiety. 21 tablet 11/22/2024 Active Social History Tobacco Use Types Packs/Day Years [...] on file Insurance [employer] Care Teams Inspector Golf Ball Relationship Specialty Start Date End Date Colleen Weston MD [address] [place] [address] PCP - General Internal Medicine 11/22/24
== END 2025-03-14 10:58 | disposition home or self-care (01) ==
LOC: HO.LAB 10:57
PROVIDERS: Nurse Practitioner Family
DX: E55.9 Vitamin D deficiency, unspecified (principal)
CPT/HCPCS: 36415; 82306

== ENCOUNTER 2025-03-17 15:53 | Outpatient (AMB) | payer OTHER, SELFPAY ==
--- OUTSIDE RECORDS SUMMARY | 2025-03-14 00:10 | XMS_ITS | Encounter Summary ---
Author Organization [facility] Address [address] [place] [id number] Care Team Providers Care Machine Builder Name Role Phone Mariluz Guevara PRICE Primary Care Provider [phone] Reason for Referral * Rehabilitation (Elective) - Pending Review Specialty Diagnoses / Procedures Referred By Contact Referred To Contact Occupational Therapy / Rehabilitation Diagnoses Chronic left shoulder pain Robert Crump PA-C [address] [place] [address] Phone: tel:[phone] fax:[phone] [place] [address] [address] Phone: tel: fax: Referral ID Status Reason Start Date Expiration Date Visits Requested Visits Authorized [id number] Pending Review Support Services 03/15/2026 99 99 Question Answer Is this referral for an initial evaluation or additional visits? Initial evaulation Is this related to a Neurological Condition? No Reason for Visit * Reason Comments Chest Pain Shoulder Pain Encounter Details Date Type Department Care Team (Late st Contact Info) Description 03/14/2025 12:10 AM EST - 03/14/2025 5:08 AM EST Emergency [facility] Emergency Department [address] [place] [phone] Alexis Nixon MD [address] [place] [phone] Chronic left shoulder pain (Primary Dx) Discharge [...] tablet 03/14/2025 documented as of this encounter ED Notes * Alexis Nixon MD - 03/14/2025 4:59 AM EST Attending Attestation Note: Discussed case with Resident Physician or the Advanced Practitioner. I examined the patient. Reviewed HPI, Exam and MDM. Agree with Treatment and Plan. I personally saw the patient and performed a substantive portion of the visit including all aspects of the decision making. I Reviewed any nurses notes, vital signs, home medication lists, other history or pertinent diagnostic tests available Other Pertinent History: Kole Morse is a 34 y.o. male who presents with left shoulder pain and left upper chest wall pain. He reports that the he has had this pain for the past year, but reports it is worse over the past few days. 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 He notes no obvious direct trauma or injury. He reports the pain is worst when he is attempting to range his left arm above his head. He reports no distal weakness, numbness, tingling. He reports Tylenol gives some mild temporary relief. No other symptoms or injuries described. Patient's Medications No medications on file No past medical history on file. Social History Socioeconomic History Marital status: Single Spouse name: Not on file Number of children: Not on file Years of education: Not on file Highest education level: Not on file Occupational History Not on file Tobacco Use Smoking status: Not on file Smokeless tobacco: Not on file Substance and Sexual Activity Alcohol use: Not on file Drug use: Not on file Sexual activity: Not on file Other Topics Concern Not on file Social History Narrative Not on file Social Drivers of Health Financial Resource Strain: Not on file Food Insecurity: Not on file Transportation Needs: Not on file Physical Activity: Not on file Stress: Not on file Social Connections: Not on file Housing Stability: Not on file No family history on file. Review of Systems: ROS negative aside from where indicated in HPI. Physical Exam: BP 119/61 (BP Location: Right arm, Patient Position: Sitting) Pulse 71 Temp 98 ??F (36.7 ??C) (Temporal) Resp 17 SpO2 98% Vital signs reviewed. Constitutional: Well-appearing, no apparent respiratory distress. Head: Atraumatic. Eyes: PERRL, EOMI, Conjunctivae Clear, No Icterus. Ear, Nose, Mouth, Throat: Grossly normal inspection. Normal voice, handling secretions normally. Neck: Supple, no nuchal signs. Cardiovascular: Normal rate/rhythm. Normal S1, S2. No extra heart sounds. Respiratory: Breath sounds clear and equal bilaterally, no wheezes, no rales, no rhonchi. Gastrointestinal: Normal bowel sounds. Soft, non-tender, non-distended. No rebound or guarding. No Ceron's sign. Back: No tenderness. No CVAT. Musculoskeletal: No edema. Decreased range of motion of left shoulder due to pain, specifically with raising it over his head. Normal distal neurovascular exam all 4 extremities. Skin: Normal for age and race, grossly normal temperature and turgor. No acute rash. Neurologic: Alert and appropriate, no apparent acute deficits. Psychiatric: Mood and manner are appropriate. Grooming and personal hygiene are appropriate. Hematologic/Lymphatic: No significant bruising, petechia, or purpura. Medical Decision Making All following discussion of EKG, imaging, and lab results are my interpretation. Social determinants of care: None Patient presenting with left shoulder and left upper chest pain, acute on chronic for the past year, worse over the past few days. Based on exam, he is notably tender to the subscapularis muscle as well as the proximal bicep tendon insertion anteriorly. Based on exam, as well as history, most likely a muscular strain, possibly some tendinitis. Patient to be started on ibuprofen and Robaxin for this, we will also have him referred for PT and orthopedic follow-up. X-ray imaging was obtained, is overall nonacute. EKG is not acutely ischemic. Stable for discharge at this time. Patient educated not to drive or do any important activities after taking muscle relaxants. They verbalized understanding of this. Will discharge with orthopedic follow-up. Patient amenable to this plan and verbalized understanding of what symptoms to return for. Patient educated on side effects of medications prescribed and instructed to read all package inserts. All questions have been answered. 4:59 AM Alexis Nixon MD 03/15/[id number] * Robert Crump PA-C - 03/14/2025 3:36 AM EST I have reviewed any nursing/front end provider documentation, the patients past medical history, past surgical history, medications, allergies, social and family history and vital signs. HPI: Kole Morse is a 34 y.o. male with no past medical/surgical history presents to the emergency department for left shoulder pain and left upper chest wall pain. He states that he has been experiencing left shoulder pain for about a year now. He states the pain is worsened over the past couple days. No trauma or injury. He is able to range his shoulder however does have increased pain. No current numbness or tingling of the arm. He also states that he has has some neck pain which is new. No shortness of breath. No pleuritic chest pain. No abdominal pain. He has tried Tylenol in the past for this pain. Records Reviewed from External Provider, Facility, or Healthcare Organization: Seen 02/14/2025 at [place] for finger pain PE: BP 119/61 (BP Location: Right arm, Patient Position: Sitting) Pulse 71 Temp 98 ??F (36.7 ??C) (Temporal) Resp 17 SpO2 98% Constitutional: No acute distress Neuro: Awake and alert, oriented to person place and time Head: Normocephalic, atraumatic Neck: Normal range of motion CV: Pulse 71 regular rhythm, left upper chest wall tenderness Resp: Clear lung sounds, no wheeze, rales, rhonchi MSK: Moving all extremities freely, left shoulder full range of motion, left shoulder mild tenderness, left radial pulse 2+ Psych: Calm and cooperative MDM: Kole Morse is a 34 y.o. male with no past medical/surgical history presents to the emergency department for left shoulder pain and left upper chest wall pain. Suspect chronic shoulder injury-recurrent strain versus tendinitis versus rotator cuff injury. My independent interpretation of the left shoulder x-ray shows no acute fracture. My independent interpretation of the chest x-ray shows no acute infiltrate or pneumothorax. Will treat pain with Tylenol Motrin and Robaxin. My independent interpretation of the EKG shows normal sinus rhythm rate 70 normal axis right bundlebranch block, no acute ST segment changes. Provided PT referral, Rx Motrin and Robaxin, PCP follow-up. Seen with Dr. Nixon - evaluation, assessment, plan, disposition discussed. Robert Crump PA-C 03/14/25 [id number] Cosigned by Alexis Nixon MD at 03/15/2025 10:34 PM EST documented in this encounter Plan of Treatment Scheduled Referrals Name Type Priority Associated Diagnoses [...] 12-LEAD ED Critical 03/13/2025 11:58 PM EST documented in this encounter Results * XR Shoulder 2+ views-Left (03/14/2025 4:20 AM EST) Anatomical Region Laterality Modality Shoulder Left Computed Radiogr aphy 03/14/2025 4:04 AM EST Impressions 03/14/2025 9:45 AM EST Normal plain film examination of the left shoulder. Interpreted by: Sha Butts MD Inspector Multifocal Lens I personally reviewed the images and the [...] left shoulder. Interpreted by: Sha Butts MD Inspector Multifocal Lens I personally reviewed the images and the resident's preliminary report and AGREE with the report as it is now presented (RADPAL1). Robert Paredes Lavender PA-C [facility] O RDERABLES Final Result * XR Chest 2 views (03/14/2025 4:20 AM EST) Anatomical Region Laterality Modality Chest Computed Radiogr aphy 03/14/2025 4:04 AM EST Impressions 03/14/2025 9:49 AM EST Normal chest PA and lateral. Interpreted by: Sha Butts MD Inspector Multifocal Lens I personally reviewed the images and the [...] and lateral. Interpreted by: Sha Butts MD Inspector Multifocal Lens I personally reviewed the images and the resident's preliminary report and AGREE with the report as it is now presented (RADPAL1). Robert Crump PA-C [facility] O RDERABLES Final Result * 10 Min ECG 12 lead (03/13/2025 11:58 PM EST) Ventricular rate 70 BPM EKG [facility] Atrial rate 70 BPM EKG [facility] P-R interval 154 ms EKG [facility] QRS duration 112 ms EKG [facility] Q-T interval 388 ms EKG [facility] QTC calculation (Bazett) 419 ms EKG [facility] P axis 47 degrees EKG [facility] R axis 16 degrees EKG [facility] T axis 50 degrees EKG [facility] 03/13/2025 11:5 8 PM EST Narrative EKG [facility] - 03/14/2025 4:40 PM EST Normal sinus rhythm Incomplete right bundle branch block Borderline ECG No previous ECGs available Confirmed by MD Escobar William ([id number]) on 03/14/2025 4:40:55 PM Procedure Note Chris Escobar MD - 03/14/2025 Normal sinus rhythm Incomplete right bundle branch block Borderline ECG No previous ECGs available Confirmed by MD Escobar William ([id number]) on 03/14/2025 4:40:55 PM us Sudeep Bello MD ECG ORDERABLES Final Result [facility] documented in this encounter Visit Diagnoses Diagnosis [...] RN) documented in this encounter Care Teams Machine Builder Relationship Specialty Start Date End Date Mariluz Guevara NP [address] [place] [id number] PCP - General 03/14/25 documented as of this encounter
--- NOTE | 2025-03-17 15:30 | A.OFFPC_ITS ---
Intake Visit Reasons: Tele 6 wks vit d deficiency Intake Note: patient here for 6 weeks Telehealth for vit d deficiency Director Of Pharmacy Required: No Allergies nickel Allergy (Verified 03/17/25 15:30) Hives Tobacco use date assessed: 03/17/25 Dental Screening Dental Screen Date: 03/17/25 Did you have a dental visit in the last 12 months?: No Did you have a dental problem in the last 6 months where you did not have access to dental care?: No Was dental information given to patient?: No HPI HPI Comments History of Present Illness Details 34-year-old assigned male at , now female, presents for a telehealth visit for vitamin D deficiency. She admits to taking her medications as prescribed without adverse reactions. No acute symptoms at this time. 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 Housing: Apartment Alcohol intake: current Patient Tobacco Use Status: Never used Tobacco Tobacco use type: Cigarette e-Cigarette/Vaping Use: Never Used Second Hand Smoke Exposure: No service: No Current occupational status: employed Current occupation: [email or web address] Current occupational exposures/hazards: No Cognitive needs: No Hearing needs: No Vision needs: Yes Questionnaire Thrive Questionnaire Date Thrive assessed: 12/09/24 I am a: Patient What is your living situation today?: I have a steady place to live Within the past 12 months, did the food you bought not last and you didn't have the money to get more?: Sometimes True Within the past 12 months, did you worry whether your food would run out before you got money to buy more?: Sometimes True Do you have trouble paying for medicines?: No Do you have trouble getting transportation to medical appointments?: No Do you have trouble paying your heating and electricity bill?: No Do you have trouble taking care of your child, family member or friend?: No Do you have trouble with day-to-day activities such as bathing, preparing meals, shopping, managing finances, etc.?: I choose not to answer this question Are you currently unemployed and looking for a job?: No Are you interested in more education?: Yes Please select the resources that you would like help with: Daily support THRIVE Score: 2 WILLIAM-7 AMB Questionnaire WILLIAM-7 Date WILLIAM - 7 assessed: 12/09/24 Source: Developed by Drs. Fish Guerrero, Chika Vazquez, Marino Kirkpatrick and colleagues, with an educational orville from [employer]. Review of Systems Const Details: Denies chills, Denies fatigue, Denies fever(s), Denies headache(s) and Denies weakness Cardiac Denies chest pain, Denies claudication, Denies leg edema, Denies lighthe adedness, Denies palpitations, Denies dyspnea, Denies dyspnea on exertion, Denies orthopnea and Denies other (Loss of consciousness) Resp Denies cough, Denies excessive phlegm production, Denies dyspnea, Denies dyspnea on exertion, Denies snoring and Denies wheezing Physical exam (Primary Care) Tobacco/Smoking Status: Tobacco use Status Tobacco use date assessed 03/17/25 03/17/25 15:33 Patient Tobacco Use Status Never used Tobacco 03/17/25 15:33 Tobacco use type Cigarette 03/17/25 15:33 e-Cigarette/Vaping Use Never Used 03/17/25 15:33 Thrive Assessment: Date of Thrive Assessment Date Thrive assessed 12/02/24 03/17/25 15:53 Const Other: Patient is a+ox4 Telehealth Telehealth Telehealth Platform: Telephone Location of provider rendering services: practice address Location of patient: address on file Patient Identification confirmed using: Name, : Yes Telehealth method: voice only Patient verbally consented to treatment: Yes Patient verbally consented to billing insurance company: Yes Patient informed of any privacy concerns related to visit: Yes Coding Level of Care Code Tele Est Pt Level 3 (30107) Diagnoses Vitamin D deficiency E55.9 Time Spent (min) 10 Assessment & Plan Assessment & Plan (1) Vitamin D deficiency: Code(s): E55.9 - Vitamin D deficiency, unspecified Category: Medical Plan: Recent vitamin D level is slightly low, 26.3. Vitamin D3 increased to 50 mcg daily; advised to take as prescribed. Perform vitamin D blood work a few days before next visit. Follow up for Transfer of care with a new provider in our practice and vit D deficiency in 2 months. Return sooner with sooner with symtpoms or concerns. Verbalized understanding and agreed with the plan. Medications: New cholecalciferol (vitamin D3) 50 mcg PO DAILY 90 tabs 1RF 90 days Discontinued cholecalciferol (vitamin D3) Discontinued Reason: Doctor's Order 25 mcg PO DAILY 90 days 90 tabs 3RF
--- OUTSIDE RECORDS SUMMARY | 2025-03-18 00:50 | XMS_ITS | Clinical Summary ---
Author Organization [facility] Address [address] [place] [address] Care Team Providers Care Machinery Dismantler Name Role Phone Torie Ralph [facility] Primary Care Provider [phone] Source Comments PLEASE NOTE, if this patient [...] on file Insurance [employer] Care Teams Machinery Dismantler Relationship Specialty Start Date End Date Torie Ralph FNP [address] [place] [phone] PCP - General Family Medicine, GLASS INSTALLER 01/15/17
--- OUTSIDE RECORDS SUMMARY | 2025-03-18 00:50 | XMS_ITS | Clinical Summary ---
Author Organization [facility] Address [address] [place] [address] Care Team Providers Care Service Plumber Name Role Phone Pcp, No MD Primary [...] on file Insurance [employer] Care Teams Service Plumber Relationship Specialty Start Date End Date Colleen Weston MD [address] [place] [address] PCP - General Internal Medicine 11/22/24
--- OUTSIDE RECORDS SUMMARY | 2025-03-18 00:51 | XMS_ITS | Clinical Summary ---
Author Organization [facility] Address [address] [place] [address] Care Team Providers Care Baked Goods Stock Clerk Name Role Phone Mariluz Guevara PRICE Primary Care Provider [phone] Allergies No known active allergies Medications ibuprofen [...] EST - 03/14/2025 5:08 AM EST [facility] Emergency Department [address] [place] [address] Alexis Nixon MD Chronic left shoulder pain [...] 12-LEAD ED Critical 03/13/2025 11:58 PM EST from Last 3 Months Results * XR Shoulder 2+ views-Left (03/14/2025 4:20 AM EST) Anatomical Region Laterality Modality Shoulder Left Computed Radiogr aphy 03/14/2025 4:04 AM EST Impressions 03/14/2025 9:45 AM EST Normal plain film examination of the left shoulder. Interpreted by: Sha Butts MD Director [employer] I personally reviewed the images and the [...] left shoulder. Interpreted by: Sha Butts MD Director [employer] I personally reviewed the images and the resident's preliminary report and AGREE with the report as it is now presented (RADPAL1). us Robert R Lavender PA-C IMG DIAGNOSTIC IMAGING O RDERABLES Final Result * XR Chest 2 views (03/14/2025 4:20 AM EST) Anatomical Region Laterality Modality Chest Computed Radiogr aphy 03/14/2025 4:04 AM EST Impressions 03/14/2025 9:49 AM EST Normal chest PA and lateral. Interpreted by: Sha Butts MD Director [employer] I personally reviewed the images and the [...] and lateral. Interpreted by: Sha Butts MD Director [employer] I personally reviewed the images and the resident's preliminary report and AGREE with the report as it is now presented (RADPAL1). us Robert R Lavender PA-C IMG DIAGNOSTIC IMAGING O RDERABLES Final Result * 10 Min ECG 12 lead (03/13/2025 11:58 PM EST) Ventricular rate 70 BPM EKG [facility] Atrial rate 70 BPM EKG [facility] P-R interval 154 ms EKG [facility] QRS duration 112 ms EKG [facility] Q-T interval 388 ms EKG [facility] QTC calculation (Bazett) 419 ms EKG [facility] P axis 47 degrees EKG [facility] R axis 16 degrees EKG [facility] T axis 50 degrees EKG [facility] 03/13/2025 11:5 8 PM EST Narrative EKG [facility] - 03/14/2025 4:40 PM EST Normal sinus rhythm Incomplete right bundle branch block Borderline ECG No previous ECGs available Confirmed by MD Escobar William ([id number]) on 03/14/2025 4:40:55 PM Procedure Note Chris Escobar MD - 03/14/2025 Normal sinus rhythm Incomplete right bundle branch block Borderline ECG No previous ECGs available Confirmed by MD Escobar William ([id number]) on 03/14/2025 4:40:55 PM Sudeep Bello MD ECG ORDERABLES Final Result [facility] from Last 3 Months Insurance [facility] Rule [facility]CIAL Care Teams Baked Goods Stock Clerk Relationship Specialty Start Date End Date Mariluz Guevara NP [address] [place] [address] PCP - General 03/14/25
== END 2025-03-17 20:43 | disposition home or self-care (01) ==
LOC: HO.HMCFM 15:53
PROVIDERS: PCP Nurse Practitioner Family; Visit Provider Nurse Practitioner Family
DX: E55.9 Vitamin D deficiency, unspecified (principal)